=== PATIENT | male | born 1970 | race Caucasian/White ===

== ENCOUNTER 2018-02-16 07:40 | Emergency (ER) | payer BC ==
[~2018-02-16] VITALS: Ht 172.7 cm; Wt 108.9 kg
[2018-02-16 07:43] VITALS: BP_SYST 141
--- NOTE | 2018-02-16 07:55 | NUR ---
Placed in room 8. To gown for exam. Side rails up.
--- NOTE | 2018-02-16 08:00 | NUR ---
Pt presents to ER c/o testicular pain, mainly on L testicle. Pt reports that symptoms began early this morning and woke him up during his sleep. Pt reports taking Ibuprofen prior to coming to ER for the pain with no relief. Pt reports that he has seen his PMD for similar symptoms in the past and was told he has a cyst on L testicle. Pt reports pain 10/10 on pain scale, no respiratory distress, speaking full sentences, ambulatory, [id number].
--- NOTE | 2018-02-16 08:08 | NUR ---
ER at bedside examining patient.
[2018-02-16] MEDS ORDERED: KETOROLAC TROMETHAMINE 60 MG/2 ML VIAL IM ONE (08:30)
--- NOTE | 2018-02-16 08:31 | NUR ---
Pt medicated as ordered by ER Dr. Mcleod. Pt tolerated well; will continue to monitor.
--- NOTE | 2018-02-16 08:36 | NUR ---
Ultrasound at bedside.
--- NOTE | 2018-02-16 09:30 | NUR ---
Pt resting comfortably on gurney, no signs of distress, will continue to monitor.
--- NOTE | 2018-02-16 10:30 | NUR ---
Pt resting comfortably on gurney, no signs of distress, will continue to monitor.
[2018-02-16 11:00] VITALS: BP_SYST 141
--- NOTE | 2018-02-16 11:00 | NUR ---
Patient given written and verbal discharge instructions and verbalizes understanding. ER MD discussed with patient the results and treatment provided. Patient in stable condition. ID arm band removed. Rx of Motrin & Tramadol given. Patient educated on pain management and to follow up with PMD. Pain Scale 2/10. Opportunity for questions provided and answered. Medication side effect fact sheet provided.
== END 2018-02-16 11:00 | disposition home or self-care (01) ==
LOC: SED 07:40
DX: K46.9 Unspecified abdominal hernia without obstruction or gangrene (principal); R03.0 Elevated blood-pressure reading, without diagnosis of hypertension
CPT/HCPCS: 76870; 96372; 99284; J1885